=== PATIENT | female | born 1960 | race Caucasian/White ===

== ENCOUNTER → 2017-10-03 | Day surgery (SDC) | payer OTHER, MEDICARE ==
[~2017-10-03] VITALS: Ht 162.6 cm; Wt 81.6 kg
[~2017-10-03] MED LIST: AMBIEN10 M1 PO; PERCOCET 325 MG1 TA2 PO; PERCOCET 5-3251 EACH PO; PRILOSEC OTC20 M1 PO; VALIUM5 M1 PO; ZOFRAN4 M1 SL
--- NOTE | 2017-10-03 13:14 | Operative Report ---
Operative/Inv Procedure Report Surgery Date: 10/03/17 Name of Procedure: Right ureteroscopy with laser lithotripsy, retropyelogram, stent placement and urethral sling and cystoscopy Pre-Operative Diagnosis: Right ureteral stone and right kidney stone and stress urinary incontinence Post-Operative Diagnosis: Same Estimated Blood Loss: 50ml to 100ml Surgeon/Center Director: Queenie Muro MD Anesthesia: laryngeal mask airway Implants: Vaginal mesh Drains: 6x24cm stent Specimens: stone fragments Complications: none Condition: stable Operative Indication: right abd pain with right ureteral stone and kidney stones stress incontinence Operative/Procedure Note Note: 56-year-old female with a history of kidney stones bilaterally with 6 month history of right back and abdominal pain. CT scan did show the mid right ureteral stone which she has never passed and continues to have pain. However she started to develop nausea and vomiting as well. She is very eager to have this treated as soon as possible. She was given the risks benefits and alternatives of ureteroscopy with laser lithotripsy for the ureteral stone and also her kidney stone. Since she also has stress urinary incontinence and has never addressed that she would like this addressed at the same time. She was given the risks benefits and alternatives of vaginal mesh as well. All questions were answered. Consent was signed. Patient was taken to the operating placed on the operating table in supine position. Timeout was performed. IV antibiotics were infused. Patient was placed in the dorsolithotomy position after LMA anesthesia was begun. She was a shaved and the genitalia region and then prepped and draped in the standard sterile fashion. Cystoscopy was performed the bladder was globally inspected. There was no abnormalities and the ureteral orifices were in their normal location. The right ureteral orifice was attempted to be cannulated with a sensor guidewire however it failed multiple times. As result a short semirigid ureteroscope was then placed into the ureter carefully and the stone was encountered at the distal ureter. The 273 laser was then used to fragment the stone into 5 smaller pieces. The stone fragments were then grasped with the 0 tip basket and sent to pathology. The semirigid was removed and a dual-lumen catheter was used to place a second wire superstiff. The 25 cm ureteral access sheath was then placed first with the inner sheath and then the inner and outer sheath together. The inner sheath and the superstiff wire were then removed. Flexible ureteroscopy was performed and the calyces were examined. She had several Jonah's plaques and one 4 mm stone in the lower pole. This was grasped with the 0 tip basket and was removed without difficulty. A retrograde pyelogram was then performed to ensure that no calyces were missed. All the calyces were again examined and no other stones were seen. The ureteroscope was removed while visualizing lysing the ureter and no stone fragments were seen. The solo guidewire was then used with the cystoscope to place a 6 x 24 cm ureteral stent. Stent was seen to be in good position fluoroscopically. Fluoroscopic images were taken throughout the case. The bladder was emptied. Attention was then turned to the sling portion of the case. Calixto catheter was placed with 10 mL of water. 1% lidocaine was infiltrated into the anterior vaginal wall. Incision was made 2 inches in the anterior wall beneath the urethra. Vaginal flaps are created taking care not to injure the urethra. The Altis Sling kit was then used to place the sling with the trochars provided. The Prolene tightening suture was pulled with a DeBakey between the mesh and the urethra. It was seen to be in a good tension-free flat orientation. The tightening suture was cut. The area was copious irrigated with bacitracin irrigation. There was no mesh in the vaginal fornices. The incision was closed with running locking every third suture with 3-0 Vicryl. The Calixto was removed and the bladder was globally inspected with the cystoscope. There was no mesh in the bladder the urethra or the vaginal fornices. The vagina was packed with 2 inch vaginal packing with bacitracin ointment. The sponge and needle count were correct at the end of the case. Patient tolerated the procedure well. She was transferred to recovery room stable condition. Findings: Right 8 mm distal ureteral stone and 4 mm right lower pole stone On cystoscopic view after sling placement there was no mesh in the bladder, urethra or vaginal fornices. Discharge Disposition: PACU
--- NOTE | 2017-10-03 15:13 | RADIOLOGY REPORT ---
EXAMINATION: XR ABDOMEN CLINICAL INDICATION: Right ureteroscopy, lithotripsy and stent insertion in the OR. COMPARISON: CT scan of the abdomen and pelvis 04/30/2017. TECHNIQUE AND FINDINGS: Fluoroscopic equipment was dedicated to the operating room for the performance of an intraoperative procedure. Several (25) spot films were acquired and are archived in PACS. Please refer to operative notes for procedural detail. Fluoroscopic time: 22 seconds. KVP: 98. mAs1.4. IMPRESSION: 1. Intraprocedural imaging provided during right ureteroscopy, lithotripsy and stent insertion. 2. Please refer to operative notes for further details.
== END ==
LOC: STS 01:53
DX: N39.3 Stress incontinence (female) (male) (principal); N20.2 Calculus of kidney with calculus of ureter; Z87.442 Personal history of urinary calculi; R39.198 Other difficulties with micturition; R31.0 Gross hematuria; N39.41 Urge incontinence; K21.9 Gastro-esophageal reflux disease without esophagitis; F17.200 Nicotine dependence, unspecified, uncomplicated
CPT/HCPCS: 74018; C1771; C2617; J0131; J0690; J2250

== ENCOUNTER 2017-10-13 15:39 | Inpatient (IN) | payer OTHER, MEDICARE ==
[~2017-10-13] VITALS: Ht 162.6 cm; Wt 80.7 kg
[2017-10-13 16:49] LABS: ABSOLUTE BASOPHIL COUNT 0 /CUMM (0.0-0.2); ABSOLUTE EOSINOPHIL COUNT 0.2 /CUMM (0.0-0.7); ABSOLUTE GRANULOCYTE CT 10.1 /CUMM (1.4-6.5); ABSOLUTE LYMPH COUNT 2.3 /CUMM (1.2-3.4); ABSOLUTE MONOCYTE COUNT 0.9 /CUMM (0.10-0.60); BASOPHIL % 0.3 % (0.0-2.0); EOSINOPHIL % 1.3 % (0-5); GRANULOCYTE % 74.9 % (42.2-75.2); MEAN CORPUSCULAR HGB 28.7 PG (27.0-31.0); MEAN CORPUSCULAR HGB CONC 33.5 G/DL (33.0-37.0); MEAN CORPUSCULAR VOLUME 85.8 FL (81.0-99.0); MEAN PLATELET VOLUME 7.9 FL (7.4-10.4); PLATELET COUNT 287 /CUMM (130-400); RBC DISTRIBUTION WIDTH 14.5 % (11.5-14.5); RED BLOOD CELL CT 4.78 /CUMM (4.20-5.40); WHITE BLOOD CELL COUNT 13.5 /CUMM (4.8-10.8)
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
--- NOTE | 2017-10-13 17:21 | History & Physical ---
General Information and HPI Allergies/Medications Allergies: Coded Allergies: No Known Allergies (10/02/17) Home Med list Omeprazole Magnesium (Prilosec Otc) 20 MG TABLET.DR 1 TAB PO DAILY GI ( Reported) Oxycodone HCl/Acetaminophen (Percocet 5-325 MG Tablet) 5 MG-325 MG TABLET 1 TAB PO Q6H PRN PAIN (Reported) Zolpidem Tartrate (Ambien) 10 MG TABLET 1 TAB PO QPM SLEEP (Reported) Past History Travel History Traveled to [place] past 21 day No Medical History Gastrointestinal: KIDNEY STONES Surgical History Surgical History: appendectomy, cholecystectomy, hysterectomy Past Family/Social History Psychosocial History ETOH Use: denies use Illicit Drug Use: denies illicit drug use Core Measures/Misc (12/22) Sepsis (View protocol) If YES complete Sepsis Event Note If YES complete Sepsis Event Note
--- NOTE | 2017-10-13 17:30 | Admission Certification ---
Admission Certification Certification Statement - As attending physician, I certify that at the time of - admission, based on clinical presentation, severity of - symptoms, need for further diagnostic testing and - therapeutic interventions, and risk of adverse outcomes - without in-hospital treatment, in my clinical assessment, - this patient requires an acute hospital stay for a minimum - of two nights or longer. I have also considered psychsocial - factors such as support system, advanced age, financial - issues, cognitive issues, and failed out-patient treatments, - past re-admission history, safety of patient, and lack of - compliance as applicable. Specific rationale supporting this admission is: The patient presents s/p cat bite on right hand with significant swelling, leukocytosis- needs admission for cultures, IV antibiotics (Unasyn), hand surgery consult, ?MRI.
--- NOTE | 2017-10-13 18:10 | RADIOLOGY REPORT ---
EXAMINATION: XR HAND, RIGHT CLINICAL INFORMATION: Cat Bite COMPARISON: None TECHNIQUE: PA, lateral, and oblique views of the right hand. FINDINGS: The bones and soft tissues are normal. No fracture. Alignment is anatomic. Joint spaces are maintained. No erosions or soft tissue calcifications. No radiopaque foreign body IMPRESSION: Normal right hand.
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
[2017-10-13 20:55] VITALS: BP 136/76
[2017-10-14 06:44] VITALS: BP 113/56
--- NOTE | 2017-10-14 08:25 | Cons- Plastic Surgery ---
General Information and HPI Consulting Request Date of Consult: 10/14/17 Requested By: Faheem Rodriguez MD Reason for Consult: Right hand cat bite Source of Information: patient Exam Limitations: no limitations History of Present Illness: 56-year-old female admitted yesterday after a cat bite to the right index finger and thumb. Patient was seen a walk-in clinic after injury for ceftriaxone and a tetanus shot. However, she began experiencing fever, chills, and notice erythema, swollen right hand. Allergies/Medications Allergies: Coded Allergies: No Known Allergies (10/02/17) Home Med List: Omeprazole Magnesium (Prilosec Otc) 20 MG TABLET.DR 1 TAB PO DAILY GI ( Reported) Oxycodone HCl/Acetaminophen (Percocet 5-325 MG Tablet) 5 MG-325 MG TABLET 1 TAB PO Q6H PRN PAIN (Reported) Zolpidem Tartrate (Ambien) 10 MG TABLET 1 TAB PO QPM SLEEP (Reported) Current Medications: Current Medications Sig/Georgina Start time Last Medication Dose Route Stop Time Status Admin Acetaminophen 1,000 MG Q8P PRN 10/13 1715 AC PO Ampicillin Sodium/ 3,000 MG Q6 10/13 2359 AC 10/14 Sulbactam Sodium IV 0648 Sodium Chloride 100 ML Ampicillin Sodium/ 0 .STK-MED ONE 10/13 1635 DC Sulbactam Sodium .ROUTE Ampicillin Sodium/ 3,000 MG ONCE ONE 10/13 1630 DC 10/13 Sulbactam Sodium IV 10/13 1659 1639 Sodium Chloride 100 ML Enoxaparin Sodium 40 MG DAILY 10/14 0900 AC SC Famotidine 0 .STK-MED ONE 10/13 1802 DC IV Famotidine 20 MG ONCE ONE 10/13 1700 DC 10/13 IV 10/13 1701 1810 Ibuprofen 600 MG Q6P PRN 10/13 1715 AC 10/14 PO 0654 Ketorolac 0 .STK-MED ONE 10/13 1635 DC Tromethamine .ROUTE Ketorolac 30 MG ONCE ONE 10/13 1630 DC 10/13 Tromethamine IV 10/13 1631 1639 Morphine Sulfate 15 MG Q4 HRS NEEDED PRN 10/13 1830 AC PO Nicotine 2 MG Q1 NEEDED PRN 10/13 1830 AC PO Nicotine 21 MG DAILY 10/13 1823 AC 10/13 TOP 2303 Omeprazole 20 MG DAILY AC 10/14 0700 AC 10/14 PO 0656 Oxycodone HCl 5 MG Q6 PRN 10/13 1715 DC PO Zolpidem Tartrate 10 MG QPM 10/13 2100 AC 10/13 PO 2309 Past History Medical History Blood Transfusion Hx: No Gastrointestinal: KIDNEY STONES Surgical History Pertinent Surgical History: appendectomy, cholecystectomy, hysterectomy Psychosocial History Where Do You Live? Home Smoking Status: Current Everyday Smoker ETOH Use: denies use Illicit Drug Use: denies illicit drug use Exam & Diagnostic Data Vital Signs and I&O Vital Signs Date Time Temp Pulse Resp B/P B/P Pulse O2 O2 Flow FiO2 Mean Ox Delivery Rate 10/15 643 98.1 73 18 113/56 95 Room Air 10/13 2054 98.1 80 18 136/76 97 Room Air 10/13 2014 98.3 85 18 145/79 99 Room Air 10/13 1805 98.5 94 18 144/86 98 Room Air Room Air 10/13 1614 98.6 108 16 145/94 98 Room Air Intake & Output 10/14 1600 10/14 0800 10/14 0000 10/13 1600 10/13 0800 10/13 0000 Intake Total 250 480 Output Total 0 Balance 250 480 Intake, IV 250 Intake, Oral 480 Number 0 0 Bowel Movements Output, Urine 0 Patient 178 lb 170 lb Weight Weight Bed scale Reported by Patient Measurement Method Physical Exam General Appearance: no apparent distress, alert, awake, comfortable Extremities: swelling, tenderness, RUE-moderate swelling of the dorsum of the right hand, healed puncture cat bite wounds noted at the base of right index and thumb, mild tenderness, no discharge, restricted range of motion of index finger , non-erythematous Neurologic/Psych: awake, alert, oriented x 3 Assessment/Plan Assessment/Plan 56 yo female s/p cat bite of the right hand with resolving cellulitis -Continue antibiotics -RUE elevation with Abilio Pillow -Monitor WBC -Consider MRI of right hand/index finger only if swelling and tenderness persists -Follow-up 1 week at office upon discharge, call for appointment [phone] -Plan discussed with patient, nursing and medical staff Problem List: 1. Cellulitis, neck 2. Cat bite of hand 3. Cellulitis of hand, right Other Findings/Comments: X-ray right hand-negative WBC 10/13: 13.5 Copies To: Faheem Rodriguez MD Consult Acknowledgment - Thank you for your consult request. Attending MD Review Statement Attending Statement Attending MD Statement: examined this patient, discuss w/resident/PA/CHEMISTRY PHYSICS TEACHER, discussed w/nursing Attending Assessment/Plan: NA
--- NOTE | 2017-10-14 09:12 | PN- Housestaff ---
See Addendum Subjective Follow-up For: right hand swelling/redness 2/2 cat bite Complaints: no complaints Subjective: Patient states she is significantly improved after receiving IV abx: Unasyn overnight. She reports improved motor function and decreased pain. Denies fever, chills, n/v/d, chest pain, SOB. Review of Systems Constitutional: Reports: see HPI. Objective Last 24 Hrs of Vital Signs/I&O Vital Signs Date Time Temp Pulse Resp B/P B/P Pulse O2 O2 Flow FiO2 Mean Ox Delivery Rate 10/14 0644 98.1 73 18 113/56 95 Room Air 10/13 2054 98.1 80 18 136/76 97 Room Air 10/13 2014 98.3 85 18 145/79 99 Room Air 10/13 1805 98.5 94 18 144/86 98 Room Air Room Air 10/13 1614 98.6 108 16 145/94 98 Room Air Intake & Output 10/14 1600 / 0800 10/14 0000 Intake Total 250 480 Output Total 0 Balance 250 480 Intake, IV 250 Intake, Oral 480 Number 0 0 Bowel Movements Output, Urine 0 Patient 178 lb 170 lb Weight Weight Bed scale Reported by Patient Measurement Method Physical Exam General Appearance: Alert, Oriented X3, Cooperative, No Acute Distress Skin: right hand swelling/redness and warmth, puncture prater between thumb and index finger without drainage Skin Temp/Moisture Exam: Warm/Dry HEENT: Atraumatic, PERRLA Neck: Supple Cardiovascular: Regular Rate, Normal S1, Normal S2, No Murmurs Lungs: Clear to Auscultation, Normal Air Movement Abdomen: Normal Bowel Sounds, Soft, No Tenderness Neurological: Normal Tone, Sensation Intact, decreased ROM 2/2 swelling right hand Extremities: Normal Pulses Assessment/Plan Assessment: Ms. Ruiz is a 56-year-old female with past medical history of nephrolithiasis status post stents followed by Dr. Muro who presents after a cat bite to the right thumb. Problem List: 1. Cellulitis right hand 2/2 cat bite #Cellulities right hand 2/2 cat bite -IV Unasyn-will have patient fill her Rx for Augmentin that she was given previously. No need for a new prescription. -Patient seen by Plastics and will call them for a follow up appointment next week. [phone] -Keep right upper extremity elevated to level above the heart while at rest to decrease swelling. -Patient to follow up with her PCP outpatient. DVT Prophylaxis: lovenox/ALPS/ambulation Dispo: anticipate d/c home later today after her afternoon Unasyn dose. Problem List: 1. Cellulitis of hand, right 2. Cat bite of hand Pain Ratin Pain Location: none Pain Goal: Remain pain free Pain Plan: see a/p Tomorrow's Labs & Rationales: none
[2017-10-14 13:57] VITALS: BP 139/91
[2017-10-14 21:52] VITALS: BP 106/70
[2017-10-15 07:05] VITALS: BP 116/64
[2017-10-15] MEDS ORDERED: AUGMENTIN 875-1 EACH PO (07:12)
--- NOTE | 2017-10-15 07:14 | Patient Discharge Instructions ---
Discharge Instructions General Discharge Information You were seen/treated for: Infected cat bite of the hand Watch for these problems: Fever, chest pain, shortness of breath Special Instructions: Please take all medications as directed. Please follow-up with primary care and plastic surgery. Diet Continue normal diet: Yes Activity Full Activity/No Limits: Yes Acute Coronary Syndrome Inclusion Criteria At DC or during hospital stay patient has or had the following: ACS DIAGNOSIS No Discharge Core Measures Meds if any: Prescribed or Continued at Discharge Meds if any: NOT Prescribed or Continued at Discharge Congestive Heart Failure Inclusion Criteria At DC or during hospital stay patient has or had the following: CHF DIAGNOSIS No Discharge Core Measures Meds if any: Prescribed or Continued at Discharge Meds if any: NOT Prescribed or Continued at Discharge Cerebrovascular accident Inclusion Criteria At DC or during hospital stay patient has or had the following: CVA/TIA Diagnosis No Discharge Core Measures Meds if any: Prescribed or Continued at Discharge Meds if any: NOT Prescribed or Continued at Discharge Venous thromboembolism Inclusion Criteria VTE Diagnosis No VTE Type NONE VTE Confirmed by (Test) NONE Discharge Core Measures - Per Current guidelines, there needs to be overlap - treatment for the first 5 days of Warfarin therapy. - If discharged on Warfarin prior to 5 days of - overlap therapy, the patient will need to be - assessed for post discharge needs including - *Post discharge parental anticoagulation - *Warfarin and/or parental anticoagulation education - *Follow up date to check INR post discharge At least 5 days overlap therapy as Inpatient No Meds if any: Prescribed or Continued at Discharge Note: Overlap Therapy is Warfarin and Anticoagulant Meds if any: NOT Prescribed or Continued at Discharge
--- NOTE | 2017-10-15 07:38 | PN- Housestaff ---
See Addendum Subjective Follow-up For: right hand cellulitis 2/2 cat bite Complaints: no complaints Subjective: Patient states she had some pain overnight that improved with elevation of right hand. She states she feels better and feels ready to be discharged. Denies n/v /d, chest pain, SOB, abdominal pain, fever, chills. Review of Systems Constitutional: Reports: see HPI. Objective Last 24 Hrs of Vital Signs/I&O Vital Signs Date Time Temp Pulse Resp B/P B/P Pulse O2 O2 Flow FiO2 Mean Ox Delivery Rate 10/15 0705 97.7 74 18 116/64 94 10/14 2152 98.5 82 20 106/70 98 Room Air 10/14 1357 98.0 72 18 139/91 97 Room Air Intake & Output 10/15 1600 10/15 0800 10/15 0000 Intake Total 120 240 Output Total Balance 120 240 Intake, IV 120 Intake, Oral 240 Physical Exam General Appearance: Alert, Oriented X3, Cooperative, No Acute Distress Skin: improving erythema to right hand. Decreased edema from previous day. limited range of motion 2/2 pain and swelling-improving. Sensory intact. Pulses symmetrical and equal Skin Temp/Moisture Exam: Warm/Dry HEENT: Atraumatic, PERRLA Neck: Supple Cardiovascular: Regular Rate, Normal S1, Normal S2 Lungs: Clear to Auscultation Abdomen: Normal Bowel Sounds, Soft, No Tenderness Neurological: Normal Tone, Sensation Intact Extremities: see skin exam Assessment/Plan Assessment: Ms. Ruiz is a 56-year-old female with past medical history of nephrolithiasis status post stents followed by Dr. Muro who presents after a cat bite to the right thumb. Problem List: 1. Cellulitis right hand 2/2 cat bite #Cellulities right hand 2/2 cat bite -IV Unasyn-will have patient fill her Rx for Augmentin that she was given previously. No need for a new prescription. -Patient seen by Plastics and will call them for a follow up appointment next week. [phone] -Keep right upper extremity elevated to level above the heart while at rest to decrease swelling. -Patient to follow up with her PCP outpatient. DVT Prophylaxis: lovenox/ALPS/ambulation Dispo: anticipate d/c home today with continued abx: Augmentin 7 days for total abx course of 10 days Problem List: 1. Cat bite of hand 2. Cellulitis of hand, right Pain Ratin Pain Location: none Pain Goal: Remain pain free Pain Plan: see a/p Tomorrow's Labs & Rationales: none
[2017-10-15 08:29] LABS: ABSOLUTE BASOPHIL COUNT 0 /CUMM (0.0-0.2); ABSOLUTE EOSINOPHIL COUNT 0.3 /CUMM (0.0-0.7); ABSOLUTE GRANULOCYTE CT 4.4 /CUMM (1.4-6.5); ABSOLUTE LYMPH COUNT 1.4 /CUMM (1.2-3.4); ABSOLUTE MONOCYTE COUNT 0.5 /CUMM (0.10-0.60); BASOPHIL % 0.7 % (0.0-2.0); EOSINOPHIL % 4.8 % (0-5); GRANULOCYTE % 65.7 % (42.2-75.2); MEAN CORPUSCULAR HGB 28.8 PG (27.0-31.0); MEAN CORPUSCULAR HGB CONC 33.5 G/DL (33.0-37.0); MEAN CORPUSCULAR VOLUME 85.9 FL (81.0-99.0); PLATELET COUNT 242 /CUMM (130-400); RBC DISTRIBUTION WIDTH 14.2 % (11.5-14.5)
[2017-10-15 09:11] LABS: WHITE BLOOD CELL COUNT 6.7 /CUMM (4.8-10.8)
[2017-10-15 09:12] LABS: HEMATOCRIT 35.2 % (37-47)
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
== END 2017-10-15 12:20 | DRG 603 ==
LOC: ERH 15:39 → ERHI 17:01 → ENRESERV 18:20 → 2NB 20:34 → ENPENDDIS 10-15 10:52 → 2NB 10-15 12:20
PROVIDERS: Internal Medicine; Physician Assistant
DX: L03.113 Cellulitis of right upper limb (principal); W55.01XA Bitten by cat, initial encounter; F17.200 Nicotine dependence, unspecified, uncomplicated; K21.9 Gastro-esophageal reflux disease without esophagitis
CPT/HCPCS: 2NBP; 36592; 73130-RT; 87040; 96374; 96375; J1650; J1885